=== PATIENT | male | born 1975 | race African-American/Black ===

== ENCOUNTER 2019-06-11 17:04 | Emergency (ER) | payer SELFPAY ==
[~2019-06-11] VITALS: Ht 177.8 cm; Wt 77.1 kg
--- NOTE | 2019-06-11 17:06 | NUR ---
ED Nurse Note: Pt brought in by EMT. Pt found in courtyard laying next to empty beer bottles. Pt is alert and orientatedx3. Addendum: 06/11/19 at 1816 by [email or web address] ED Nurse Note: Pt brought in by EMT. Pt found in courtyard laying next to empty beer bottles. Pt is alert and orientatedx1.
[2019-06-11 17:20] VITALS: BP 117/86
[2019-06-11 17:40] LABS: BASOPHILS % (AUTO) 1.7 % (0.0-2.0); EOSINOPHILS % (AUTO) 2.8 % (0.0-3.0); HEMATOCRIT 40.5 % (42.0-52.0); HEMOGLOBIN 13.7 G/DL (14.2-18.0); LYMPHOCYTES % (AUTO) 31.8 % (20.0-45.0); MEAN CORPUSCULAR VOLUME 85 FL (80-99); MONOCYTES % (AUTO) 7.6 % (1.0-10.0); NEUTROPHILS % (AUTO) 56.2 % (45.0-75.0); PLATELET COUNT 123 K/UL (150-450); RED BLOOD COUNT 4.75 M/UL (4.70-6.10); RED CELL DISTRIBUTION WIDTH 12.3 % (11.6-14.8); WHITE BLOOD COUNT 4.5 K/UL (4.8-10.8)
[2019-06-11 17:48] LABS: ANION GAP 14 mmol/L (5-15); BLOOD UREA NITROGEN 6 mg/dL (7-18); CALCIUM 8.1 MG/DL (8.5-10.1); CARBON DIOXIDE 22 MMOL/L (21-32); CHLORIDE 110 MMOL/L (98-107); CREATININE 0.6 MG/DL (0.55-1.30); POTASSIUM 3.6 MMOL/L (3.5-5.1); SODIUM 146 MMOL/L (136-145)
[2019-06-11 17:53] LABS: ALANINE AMINOTRANSFERASE 116 U/L (12-78); ALKALINE PHOSPHATASE 100 U/L (46-116); ASPARTATE AMINO TRANSFERASE 81 U/L (15-37); BILIRUBIN,TOTAL 0.3 MG/DL (0.2-1.0)
--- NOTE | 2019-06-11 18:15 | NUR ---
ED Nurse Note: pt became more lethargic and sleepy and only responds to deep pain. ERPA made aware.
[2019-06-11 18:44] LABS: APPEARANCE,URINE CLEAR; BILIRUBIN, URINE NEGATIVE (NEGATIVE); COLOR,URINE PALE YELLOW; GLUCOSE, URINE (UA) NEGATIVE (NEGATIVE); KETONES,URINE NEGATIVE (NEGATIVE); LEUKOCYTE ESTERASE ,URINE NEGATIVE (NEGATIVE); NITRITE,URINE NEGATIVE (NEGATIVE); PH,URINE 5 (4.5-8.0); PROTEIN,URINE NEGATIVE (NEGATIVE); UROBILINOGEN,URINE NORMAL MG/DL (0.0-1.0)
--- NOTE | 2019-06-11 18:55 | NUR ---
ED Nurse Note: pt sleeping in bed. pt was taken to CT scan by sy.
--- NOTE | 2019-06-11 19:06 | NUR ---
ED Nurse Note: pt came back from CT sleeping in [facility].
--- NOTE | 2019-06-11 19:07 | NUR ---
HAND-OFF: Report given to KEMI Whitley. pt just came back from CT scan.
--- NOTE | 2019-06-11 19:28 | Diagnostic Imaging Report ---
EXAM: CT Head Without Intravenous Contrast CLINICAL HISTORY: ALOC TECHNIQUE: Axial computed tomography images of the head brain without intravenous contrast. CTDI is 66-0.7 mGy and DLP is 1322 mGy-cm. One or more of the following dose reduction techniques were used: automated exposure control, adjustment of the mA and or kV according to patient size, use of iterative reconstruction technique. COMPARISON: No relevant prior studies available. FINDINGS: Brain: Unremarkable. No hemorrhage. No significant white matter disease. No edema. Ventricles: Unremarkable. No ventriculomegaly. Bones joints: Unremarkable. No acute fracture. Soft tissues: Mucosal thickening the sphenoid sinus and maxillary sinuses bilaterally. Mastoid air cells: Unremarkable as visualized. No mastoid effusion. IMPRESSION: Normal head brain CT.
--- NOTE | 2019-06-11 19:43 | Emergency Room Report ---
History of Present Illness General Chief Complaint: Alcohol Intoxication Present Illness HPI 43-year-old male with no known significant past medical history brought in by paramedics due to alcohol intoxication. Patient is alert and awake however does not respond to questions upon arrival due to intoxication. Vitals are within normal limits. Patient appears to have altered level of consciousness after I converse with him after the administration of fluids as well as blood draw. Head CT was done and hemorrhage and any skull fracture was ruled out. Patient is not a good historian at this time to communicate past medical history. Does admit to alcohol intake. Denies drug use however urine shows benzodiazepines. Denies other associated symptoms. (Porsha Anguiano) Allergies: Coded Allergies: No Known Allergies (Unverified , 06/11/19) Patient History Past Medical History: see triage record Past Surgical History: unable to obtain Pertinent Family History: none Social History: Reports: alcohol use, drug use - benzo Immunizations: UTD Reviewed Nursing Documentation: PMH: Agreed; PSxH: Agreed (Porsha Anguiano) Nursing Documentation-PMH Past Medical History: No History, Except For Hx Seizures: Yes (Porsha Anguiano) Review of Systems All Other Systems: negative except mentioned in HPI (Porsha Anguiano) Physical Exam Vital Signs Date Time Temp Pulse Resp B/P (MAP) Pulse Ox O2 Delivery O2 Flow Rate FiO2 06/11/19 16:57 97.9 72 18 119/84 (96) 98 Room Air 06/11/19 17:20 96 Sp02 EP Interpretation: reviewed General Appearance: mild distress, other - Disheveled and intoxicated Head: normocephalic, atraumatic Eyes: bilateral eye normal inspection, bilateral eye PERRL ENT: hearing grossly normal, normal pharynx, no angioedema, normal voice Neck: full range of motion, supple/symm/no masses Respiratory: chest non-tender, lungs clear, normal breath sounds, no rhonchi, no wheezing, speaking full sentences Cardiovascular #1: regular rate, rhythm, no edema, no murmur, normal capillary refill Cardiovascular #2: 2+ radial (R), 2+ radial (L) Gastrointestinal: normal bowel sounds, non tender, soft, non-distended, no guarding, no rebound Genitourinary: no CVA tenderness Musculoskeletal: back normal, gait/station normal, normal range of motion, non- tender, no calf tenderness Neurologic: alert, oriented x3, responsive, motor strength/tone normal, sensory intact, speech normal Psychiatric: other - intoxicated Skin: no rash Lymphatic: normal inspection (Porsha Anguiano) Medical Decision Making PA Attestation All diagnoses and treatment plans were reviewed and discussed with my supervising physician Dr. Amado (Porsha Anguiano) Diagnostic Impression: Primary Impression: Alcohol intoxication ER Course 43-year-old male with no known significant past medical history brought in by paramedics due to alcohol intoxication. Patient is alert and awake however does not respond to questions upon arrival due to intoxication. Vitals are within normal limits. Patient appears to have altered level of consciousness after I converse with him after the administration of fluids as well as blood draw. Head CT was done and hemorrhage and any skull fracture was ruled out. Patient is not a good historian at this time to communicate past medical history. Does admit to alcohol intake. Denies drug use however urine shows benzodiazepines. Denies other associated symptoms. Ddx considered but are not limited to: Amphetamine abuse, benzodiazepine abuse, alcohol intoxication generalized anxiety disorder, panic attack, depression with psychotic feature, bipolar disorder, drug overdose Vital signs: are WNL, pt. is afebrile H&PE are most consistent with: Alcohol intoxication, benzodiazepine abuse ORDERS: CBC, CMP, UA, EtOH, tox screen ED INTERVENTIONS: NS bolus I signed the patient to Dr. Lozoya at 8:40pm (Porsha Anguiano) ER Course Patient was reexamined at 1:00. Patient was noted to be more sober and able to ambulate without assistance. Patient appears to be stable for discharge and has good plan for self-care. Patient will be discharged home. (Yon Lozoya MD) Last Vital Signs Date Time Temp Pulse Resp B/P (MAP) Pulse Ox O2 Delivery O2 Flow Rate FiO2 06/11/19 17:20 97.9 67 18 117/86 98 Room Air 06/11/19 17:20 96 (Porsha Anguiano) Status: improved (Yon Lozoya MD) Disposition: HOME, SELF-CARE Condition: Stable Referrals: NOT CHOSEN IPA/,REFERRING (PCP) Patient Instructions: Alcohol Abuse and Nutrition Porsha Anguiano Jun 11, 2019 19:43 Yon Lozoya MD Jun 12, 2019 01:07
--- NOTE | 2019-06-11 20:30 | NUR ---
ER Nurse Note: Pt asleep, no signs of distress, RA, stable. Pt denies pain, n/v. SLIV on RT hand; patent. All safety measures met; will continue to montior.
[2019-06-11 22:29] VITALS: BP 112/82
--- NOTE | 2019-06-11 23:50 | NUR ---
ER Nurse Note: Pt awake, a&ox4, talks with stutter but speech is cohearent. Steady gait. Pt stated "I am ready to go home". No signs of distress no signs of withdrawls. All safety measures met; will continue to montior.
[2019-06-12 01:20] VITALS: BP 122/78
--- NOTE | 2019-06-12 01:20 | NUR ---
ER Nurse Note: Patient seen, treated, medically cleared to be discharged per ERMD. Discharge instructions given with repeat verbalization by pt. Instructed pt to follow up with primary care physican within 7 days. Pt is aox4, on room air, with stable vital signs. Pt stated "I am not homeless and I have a home. It's on [facility]". ID band removed. IV removed; site clean and bandaged. Pt ambulatory; left with all belongings.
== END 2019-06-12 01:20 | disposition home or self-care (01) ==
LOC: EDBD 17:04 → EMR 18:48
DX: F10.129 Alcohol abuse with intoxication, unspecified (principal); G40.909 Epilepsy, unspecified, not intractable, without status epilepticus
CPT/HCPCS: 36415; 70450; 80053; 80307; 81001; 85025; 96361; 96374; 96375; 99284; G0480; J2405; S0028; J7030